=== PATIENT | female | born 1955 | race Two or more races ===

== ENCOUNTER 2018-07-13 09:09 | Day surgery (SDC) | payer BC ==
[2018-07-13] VITALS (9 sets, daily range): BP systolic 107–142; BP diastolic 49–74
[~2018-07-13] VITALS: Ht 167.6 cm; Wt 65.8 kg
[~2018-07-13 09:09] MED LIST: LR 1000ml 1,000 ML IVLG SCH
[2018-07-13] MEDS ORDERED: NKM (09:49)
[2018-07-13] MEDS ORDERED: Lidocaine 1% MPF 10mg/ml 5ml ONE (11:00)
[2018-07-13] MEDS ORDERED: Propofol 200mg/20ml IV ONE (11:00)
[2018-07-13] MEDS ORDERED: LR 1000ml ONE (11:00)
--- NOTE | 2018-07-13 11:10 | Anethesia Preoperative Eval ---
Anesthesia Pre-op PMH/ROS General Date of Evaluation: July 13, 2018 Time of Evaluation: 11:05 Anesthesiologist: Krissy Hess CRNA ASA Score: ASA 2 Mallampati Score Class I : Soft palate, uvula, fauces, pillars visible Class II: Soft palate, uvula, fauces visible Class III: Soft palate, base of uvula visible Class IV: Only hard plate visible Mallampati Classification: Class II Family History: no anesthesia problems Allergies: Coded Allergies: No Known Allergies (Unverified , 07/12/18) Medications: see eMAR Patient NPO?: Yes NPO Date: July 13, 2018 NPO Time: 00:00 Past Medical History Cardiovascular: Denies: HTN, CAD, SD, valve dz, arrhythmia, other Pulmonary: Denies: asthma, COPD, JENELLE, other Gastrointestinal/Genitourinary: Reports: GERD, other - Hx of fibroids s/p hysterectomy; Denies: CRI, ESRD Neurologic/Psychiatric: Denies: dementia, CVA, depression/anxiety, TIA, other Endocrine: Denies: DM, hypothyroidism, steroids, other HEENT: Denies: cataract (L), cataract (R), glaucoma, [place] (L), [place] (R), other Hematology/Immune: Denies: anemia, DVT, bleeding disorder, other Musculoskeletal/Integumentary: Reports: OA, other - LBP; Denies: RA, DJD, DDD, edema Anesthesia Pre-op Phys. Exam Physician Exam Last Vital Signs Date Time Temp Pulse Resp B/P (MAP) Pulse Ox O2 Delivery O2 Flow Rate FiO2 07/13/18 09:50 Room Air 07/13/18 09:44 97.8 77 18 107/68 95 Constitutional: NAD Neurologic: other - alert & oriented Cardiovascular: RRR Respiratory: CTA Gastrointestinal: S/NT/ND Airway Exam Mallampati Score: Class II MO: full Neck: FROM TMD: > 3 FB Teeth: intact Dentures: no upper, no lower Anesthesia Pre-op A/P Risk Assessment & Plan Assessment: ASA 2, ok to proceed Plan: MAC Status Change Before Surgery: No Pre-Antibiotics Given Within 1 Hr of Incision: Krissy Avendano CRNA July 13, 2018 11:10
--- NOTE | 2018-07-13 11:17 | Pre-Procedure Note/Attestation ---
Pre-Procedure Note/Attestation Complete Prior to Procedure Planned Procedure: not applicable Procedure Narrative: EGD Colon Indications for Procedure Pre-Operative Diagnosis: GERD constipation Attestation I attest that I discussed the nature of the procedure; its benefits; risks and complications; and alternatives (and the risks and benefits of such alternatives ), prior to the procedure, with the patient (or the patient's legal customer service representative teacher). I attest that, if there was a reasonable possibility of needing a blood transfusion, the patient (or the patient's legal customer service representative teacher) was given the [facility] standardized written summary, pursuant to the [place]i Blood Safety Act ([place] Health and Safety Code # 1645, as amended). I attest that I re-evaluated the patient just prior to the surgery and that there has been no change in the patient's H&P, except as documented below: Keisha Mcmillan MD July 13, 2018 11:17
--- NOTE | 2018-07-13 11:18 | Short Stay Surgery H&P ---
History of Present Illness History of Present Illness Chief Complaint see typed H&P HPI Ambika Lombardi is a 62 year old female who was admitted on for Gerd, Constipation Patient History Allergies: Coded Allergies: No Known Allergies (Unverified , 07/12/18) Medication History Scheduled No Known Medications* (NKM - No Known Medications*), 0 ., (Reported) Physical Exam Vital Signs Last Vital Signs Date Time Temp Pulse Resp B/P (MAP) Pulse Ox O2 Delivery O2 Flow Rate FiO2 07/13/18 09:50 Room Air 07/13/18 09:44 97.8 77 18 107/68 95 Plan Attestation Are the patient's medical conditions optimized for surgery? Keisha Mcmillan MD July 13, 2018 11:18
--- NOTE | 2018-07-13 11:55 | Endoscopy Procedure Note ---
Endoscopy Procedure Note General Indication for Procedure: GERD, Consipation/alt BM Procedures Performed: EGD, colonoscopy Operative Findings/Diagnosis: HH, Melanosis, rhoids Specimen: yes Pt Tolerated Procedure Well: Yes Estimated Blood Loss: none Anesthesia Anesthesiologist: [employer] Anesthesia: MAC Medications Medication Given: see anesthesia record Inserted Devices Implant(s) used?: No GI Core Measures 50 yrs or older w/o bx or poly: Yes 10yrs. F/U recommended: Yes If not recommended, why?: 18 years or older w/prev. colo: No <3yrs. since last colonoscopy: No Med reason:<3 yrs.: System Reason:<3 yrs.: Last colonoscopy >= to 3yrs: Yes Keisha Mcmillan MD July 13, 2018 11:55
--- NOTE | 2018-07-13 11:56 | Brief Operative Note ---
Immediate Post Operative Note Operative Note Chief Complaint: GERD, Constipn/alt BM Pre-op Diagnosis: GERD constipation Procedure: EGD bx colon bx Post-op Diagnosis: HH, Melanosis, rhoid Surgeon: el Anesthesiologist: ALEJANDRO Anesthesia: MAC Specimen: yes Complications: none Condition: stable Fluids: Recorded Estimated Blood Loss: none Drains: none Implant(s) used?: No Keisha Mcmillan MD July 13, 2018 11:56
--- NOTE | 2018-07-13 13:48 | 48 Hour Post Anesthesia Eval ---
Post Anesthesia Evaluation Procedure: EGD, colonoscopy Date of Evaluation: July 13, 2018 Time of Evaluation: 13:47 Blood Pressure Systolic: 126 0: 67 Pulse Rate: 74 Respiratory Rate: 16 Temperature (Fahrenheit): 97.0 O2 Sat by Pulse Oximetry: 100 Airway: patent Nausea: No Vomiting: No Pain Intensity: 0 Hydration Status: adequate Cardiopulmonary Status: stable Mental Status/LOC: patient returned to baseline Follow-up Care/Observations: per GI Post-Anesthesia Complications: none Follow-up care needed: N/A Krissy Hess CRNA July 13, 2018 13:48
--- NOTE | 2018-07-14 16:15 | Operative Note - Dictated ---
SURGEON: Keisha Mcmillan M.D. PRE-ENDOSCOPIC DIAGNOSES: 1. Symptoms of gastroesophageal reflux. 2. Altered bowel habits and constipation. POST-ENDOSCOPIC DIAGNOSES: 1. Hiatal hernia. 2. Status post random biopsies of the stomach and esophagus. 3. Mild melanosis coli, status post random biopsies of the rectum. DESCRIPTION OF PROCEDURE: The procedure, its risks, indications, alternatives, and possible complications were explained to the patient and informed consent was obtained. The patient was then sedated in the left lateral decubitus position and a diagnostic upper endoscope was introduced into the oropharynx and advanced to the duodenum. The endoscope was then gradually withdrawn and the mucosa examined carefully. Examination of the upper gastrointestinal mucosa was notable for a small hiatal hernia. The biopsies were sent to pathology for review. The endoscope was removed. The rectal exam was done and the colonoscope was introduced into the rectum and advanced to the cecum. The cecum was identified by the appearance of the ileocecal valve. The colonoscope was then gradually withdrawn. The mucosa examined carefully. Examination of the colonic mucosa revealed mild melanosis coli. The random biopsy of the rectum was sent to pathology for review. The endoscope was removed and the patient was sent to recovery in good condition. COMPLICATIONS: None. RECOMMENDATIONS: 1. Followup biopsy results. 2. Reflux precautions. 3. Continue acid blockade. 4. Outpatient followup. Keisha Mcmillan M.D. DR: NIRALI JOB#: [id number] CC: Keisha Mcmillan M.D.; Fax#: [phone] [facility]
== END 2018-07-13 13:05 | disposition home or self-care (01) ==
LOC: GAS 09:09
DX: K21.9 Gastro-esophageal reflux disease without esophagitis (principal); K29.50 Unspecified chronic gastritis without bleeding; K44.9 Diaphragmatic hernia without obstruction or gangrene; K63.89 Other specified diseases of intestine; K59.00 Constipation, unspecified; M19.90 Unspecified osteoarthritis, unspecified site; Z80.0 Family history of malignant neoplasm of digestive organs; Z90.710 Acquired absence of both cervix and uterus
CPT/HCPCS: 43239; 45380; J2704; 94003; 94150